=== PATIENT | female | born 1990 | race Caucasian/White ===

== ENCOUNTER 2018-11-16 10:12 | Emergency (ER) | payer OTHER, MEDICAID ==
[~2018-11-16] VITALS: Ht 177.8 cm; Wt 124.7 kg
[~2018-11-16 10:12] MED LIST: HYDROCODONE-AP1 EAC6 PO; IBUPROFEN 800800 M1 PO; MACROBID 100 M100 M1 PO; PHENERGAN 25 MG25 M1 PO; PRENATAL
[2018-11-16] MEDS ORDERED: BACTRIM DS TAB1 EACH PO (11:06)
[2018-11-16 11:10] VITALS: BP 155/102
[2018-11-17] MEDS ORDERED: ZOFRAN ODT4 MG PO (18:07)
[2018-11-17] MEDS ORDERED: CLEOCIN HCL300 MG PO (18:07)
== END 2018-11-16 11:20 | disposition home or self-care (01) ==
LOC: M.ERS 10:12
DX: L02.412 Cutaneous abscess of left axilla (principal); Z88.6 Allergy status to analgesic agent; Z91.040 Latex allergy status

== ENCOUNTER 2018-11-17 17:44 | Emergency (ER) | payer OTHER, MEDICAID ==
[~2018-11-17] VITALS: Ht 177.8 cm; Wt 124.7 kg
[~2018-11-17 17:44] MED LIST changes: +BACTRIM DS TAB1 EACH PO
[2018-11-17 18:01] VITALS: BP 167/98
[2018-11-17] MEDS ORDERED: CLEOCIN HCL300 MG PO (18:07)
[2018-11-17] MEDS ORDERED: ZOFRAN ODT4 MG PO (18:07)
== END 2018-11-17 18:19 | disposition home or self-care (01) ==
LOC: M.ERS 17:44
DX: L02.412 Cutaneous abscess of left axilla (principal); T37.0X5A Adverse effect of sulfonamides, initial encounter; R11.2 Nausea with vomiting, unspecified; Y92.89 Other specified places as the place of occurrence of the external cause; F17.210 Nicotine dependence, cigarettes, uncomplicated; Z88.6 Allergy status to analgesic agent; Z91.040 Latex allergy status

== ENCOUNTER 2019-03-18 14:26 | Emergency (ER) | payer OTHER, MEDICAID ==
[~2019-03-18] VITALS: Ht 180.3 cm; Wt 136.1 kg
[~2019-03-18 14:26] MED LIST changes: +CLEOCIN HCL300 MG PO; +ZOFRAN ODT4 MG PO
[2019-03-18] MEDS ORDERED: BUTALB-APAP-CA1 EACH PO (15:19)
[2019-03-18] MEDS ORDERED: ONDANSETRON HCL4 M2 PO (15:19)
[2019-03-18 15:53] VITALS: BP 158/86
== END 2019-03-18 15:56 | disposition home or self-care (01) ==
LOC: M.ERS 14:26
DX: S06.0X0A Concussion without loss of consciousness, initial encounter (principal); R11.2 Nausea with vomiting, unspecified; Z91.040 Latex allergy status; Z88.6 Allergy status to analgesic agent; W18.39XA Other fall on same level, initial encounter; Y93.89 Activity, other specified; Y92.89 Other specified places as the place of occurrence of the external cause; Y99.8 Other external cause status

== ENCOUNTER 2019-04-09 09:05 | Emergency (ER) | payer OTHER, MEDICAID ==
[~2019-04-09] VITALS: Ht 177.8 cm; Wt 136.1 kg
[~2019-04-09 09:05] MED LIST changes: +BUTALB-APAP-CA1 EACH PO; +ONDANSETRON HCL4 M2 PO
[2019-04-09 09:29] LABS: ABSOLUTE BASOPHILS 0.1 thou/uL (0.0-0.2); ABSOLUTE EOSINOPHILS 0.3 thou/uL (0.0-0.7); ABSOLUTE LYMPHOCYTES 3.6 thou/uL (0.8-5.3); ABSOLUTE MONOCYTES 0.8 thou/uL (0.0-1.2); ABSOLUTE NEUTROPHILS 8.1 thou/uL (1.6-8.1); BASOPHILS 1.1 %; HEMATOCRIT 41.6 % (37.0-47.0); HEMOGLOBIN 13.7 gm/dL (12.0-15.0); MCH 26.1 pg (26.0-34.0); MCHC 32.8 g/dL (28.0-37.0); MCV 79.5 fL (80.0-100.0); MONOCYTES 6.2 %; MPV 8.7 fl. (7.2-11.1); NUCLEATED RBCS 0 /100WBC; PLATELET COUNT* 384 thou/uL (150-400); POLYS 62.7 %; RBC 5.24 mil/uL (4.20-5.00); RDW-CV 14.6 % (10.5-14.5); WBC 12.8 thou/uL (4.0-11.0)
[2019-04-09 09:37] LABS: CALCIUM 9.4 mg/dL (8.5-10.1); CREATININE 0.7 mg/dL (0.6-1.3); POTASSIUM 4.1 mmol/L (3.5-5.1)
[2019-04-09 09:42] LABS: ALBUMIN 3.5 g/dL (3.4-5.0); TOTAL BILIRUBIN 0.3 mg/dL (<0.1-1.0); TOTAL PROTEIN 8.2 g/dL (6.4-8.2)
[2019-04-09 10:52] LABS: URINE BILIRUBIN NEGATIVE (Negative); URINE BLOOD 3+ (Negative); URINE CLARITY CLEAR; URINE COLOR YELLOW; URINE GLUCOSE-RANDOM NEGATIVE (Negative); URINE KETONES NEGATIVE (Negative); URINE LEUKOCYTES-REFLEX NEGATIVE (Negative); URINE NITRITE-REFLEX NEGATIVE (Negative); URINE PROTEIN 1+ (Negative); URINE UROBILINOGEN 0.2 E.U./dl (0.2-1.0)
[2019-04-09 10:59] LABS: SQUAMOUS >10 Many /LPF (0-3)
[2019-04-09 11:00] LABS: CASTS None Seen /LPF (None Seen); MUCUS >6 Heavy strn/LPF (None Seen); URINE RBC >20 Many /HPF (0-2); URINE WBC-REFLEX 0-5 Rare /HPF (0-5)
[2019-04-09 11:01] LABS: CRYSTALS None Seen /LPF (None Seen)
[2019-04-09] MEDS ORDERED: NORCO 5-325 TA1 EAC1 PO (13:04)
[2019-04-09] MEDS ORDERED: IBUPROFEN 800800 MG PO (13:04)
[2019-04-09 13:26] VITALS: BP 127/62
== END 2019-04-09 13:27 | disposition home or self-care (01) ==
LOC: M.ERS 09:05
PROVIDERS: Personal Emergency Response Attendant
DX: R10.32 Left lower quadrant pain (principal); R11.2 Nausea with vomiting, unspecified; Z88.6 Allergy status to analgesic agent; Z91.040 Latex allergy status

== ENCOUNTER 2019-04-11 23:02 | Emergency (ER) | payer OTHER, MEDICAID ==
[~2019-04-11] VITALS: Ht 177.8 cm; Wt 136.1 kg
[~2019-04-11 23:02] MED LIST changes: +IBUPROFEN 800800 MG PO; +NORCO 5-325 TA1 EAC1 PO
[2019-04-11 23:25] LABS: URINE BILIRUBIN NEGATIVE (Negative); URINE BLOOD 1+ (Negative); URINE CLARITY CLEAR; URINE COLOR YELLOW; URINE GLUCOSE-RANDOM NEGATIVE (Negative); URINE KETONES NEGATIVE (Negative); URINE LEUKOCYTES-REFLEX NEGATIVE (Negative); URINE NITRITE-REFLEX NEGATIVE (Negative); URINE PROTEIN NEGATIVE (Negative); URINE SPECIFIC GRAVITY >= 1.030 (1.005-1.030); URINE UROBILINOGEN 0.2 E.U./dl (0.2-1.0)
[2019-04-11 23:57] LABS: ABSOLUTE BASOPHILS 0.2 thou/uL (0.0-0.2); ABSOLUTE EOSINOPHILS 0.4 thou/uL (0.0-0.7); ABSOLUTE NEUTROPHILS 6.2 thou/uL (1.6-8.1); BASOPHILS 1.3 %; HEMATOCRIT 38.8 % (37.0-47.0); HEMOGLOBIN 12.5 gm/dL (12.0-15.0); LYMPHOCYTES 33.9 %; MCH 25.9 pg (26.0-34.0); MCHC 32.4 g/dL (28.0-37.0); MCV 80.1 fL (80.0-100.0); MONOCYTES 8.7 %; MPV 8.7 fl. (7.2-11.1); NUCLEATED RBCS 0 /100WBC; PLATELET COUNT* 333 thou/uL (150-400); POLYS 53.1 %; RBC 4.84 mil/uL (4.20-5.00); RDW-CV 14.8 % (10.5-14.5); WBC 11.8 thou/uL (4.0-11.0)
[2019-04-12 00:03] LABS: AMP/METHAMP Negative (Negative); BARBITURATES POSITIVE (Negative); BENZODIAZEPINES Negative (Negative); COCAINE Negative (Negative); METHADONE Negative (Negative); OPIATES POSITIVE (Negative); PCP Negative (Negative); THC Negative (Negative)
[2019-04-12 00:08] LABS: CALCIUM 9.1 mg/dL (8.5-10.1); CREATININE 0.7 mg/dL (0.6-1.3); POTASSIUM 3.9 mmol/L (3.5-5.1)
[2019-04-12 00:23] LABS: TOTAL BILIRUBIN 0.1 mg/dL (<0.1-1.0); TOTAL PROTEIN 7.1 g/dL (6.4-8.2)
[2019-04-12] MEDS ORDERED: NORCO 7.5-3251 EACH PO (01:22)
[2019-04-12] MEDS ORDERED: FLEXERIL PO (01:22)
[2019-04-12] MEDS ORDERED: ZOFRAN ODT4 MG PO (01:23)
[2019-04-12 01:45] VITALS: BP 101/68
[2019-04-12] MEDS ORDERED: BACTRIM DS TAB1 EACH PO (17:11)
[2019-04-12] MEDS ORDERED: PHENAZOPYRIDIN200 M2 PO (17:11)
== END 2019-04-12 01:46 | disposition home or self-care (01) ==
LOC: M.ERS 23:02
PROVIDERS: Emergency Medicine
DX: R10.9 Unspecified abdominal pain (principal); F10.10 Alcohol abuse, uncomplicated; Z88.6 Allergy status to analgesic agent; Z91.040 Latex allergy status

== ENCOUNTER 2019-04-12 16:02 | Emergency (ER) | payer OTHER, MEDICAID ==
[~2019-04-12] VITALS: Ht 177.8 cm; Wt 140.6 kg
[~2019-04-12 16:02] MED LIST changes: +FLEXERIL PO; +NORCO 7.5-3251 EACH PO
[2019-04-12 16:20] LABS: ABSOLUTE BASOPHILS 0.2 thou/uL (0.0-0.2); ABSOLUTE EOSINOPHILS 0.3 thou/uL (0.0-0.7); ABSOLUTE LYMPHOCYTES 3.7 thou/uL (0.8-5.3); ABSOLUTE NEUTROPHILS 8.1 thou/uL (1.6-8.1); BASOPHILS 1.2 %; EOSINOPHILS 2.1 %; MCH 25.8 pg (26.0-34.0); MCHC 32.4 g/dL (28.0-37.0); MCV 79.4 fL (80.0-100.0); MONOCYTES 7.3 %; MPV 8.7 fl. (7.2-11.1); NUCLEATED RBCS 0 /100WBC; PLATELET COUNT* 360 thou/uL (150-400); POLYS 61.4 %; RBC 5.03 mil/uL (4.20-5.00); RDW-CV 14.8 % (10.5-14.5); WBC 13.2 thou/uL (4.0-11.0)
[2019-04-12 16:26] LABS: CALCIUM 9.1 mg/dL (8.5-10.1); CREATININE 0.9 mg/dL (0.6-1.3); POTASSIUM 4.3 mmol/L (3.5-5.1)
[2019-04-12 16:31] LABS: ALBUMIN 3.2 g/dL (3.4-5.0); TOTAL BILIRUBIN 0.1 mg/dL (<0.1-1.0); TOTAL PROTEIN 7.4 g/dL (6.4-8.2)
[2019-04-12 17:00] LABS: URINE BILIRUBIN NEGATIVE (Negative); URINE BLOOD TRACE (Negative); URINE CLARITY CLEAR; URINE COLOR YELLOW; URINE GLUCOSE-RANDOM NEGATIVE (Negative); URINE KETONES NEGATIVE (Negative); URINE LEUKOCYTES-REFLEX TRACE (Negative); URINE NITRITE-REFLEX NEGATIVE (Negative); URINE PROTEIN NEGATIVE (Negative); URINE UROBILINOGEN 0.2 E.U./dl (0.2-1.0)
[2019-04-12] MEDS ORDERED: BACTRIM DS TAB1 EACH PO (17:11)
[2019-04-12] MEDS ORDERED: PHENAZOPYRIDIN200 M2 PO (17:11)
[2019-04-12 17:29] LABS: BACTERIA-REFLEX 1-9 Few /HPF (None Seen); CASTS None Seen /LPF (None Seen); CRYSTALS None Seen /LPF (None Seen); SQUAMOUS 0-3 Few /LPF (0-3); URINE RBC 0-2 Rare /HPF (0-2); URINE WBC-REFLEX 0-5 Rare /HPF (0-5)
[2019-04-12 17:32] VITALS: BP 119/65
[2019-04-12 17:35] LABS: AMORPHOUS URATES Few /LPF (None Seen)
== END 2019-04-12 17:34 | disposition home or self-care (01) ==
LOC: M.ERS 16:02
PROVIDERS: Nurse Practitioner Psychiatric/Mental Health
DX: N39.0 Urinary tract infection, site not specified (principal); Z91.040 Latex allergy status; Z88.6 Allergy status to analgesic agent

== ENCOUNTER 2019-05-18 23:53 | Emergency (ER) | payer OTHER, MEDICAID ==
[~2019-05-18] VITALS: Ht 157.5 cm; Wt 147.4 kg
[~2019-05-18 23:53] MED LIST changes: +PHENAZOPYRIDIN200 M2 PO
[2019-05-19] MEDS ORDERED: NORCO 7.5-3251 EACH PO ×2 (00:42→01:06)
[2019-05-19 01:14] VITALS: BP 155/90
== END 2019-05-19 01:16 | disposition home or self-care (01) ==
LOC: M.ERS 23:53
DX: S93.491A Sprain of other ligament of right ankle, initial encounter (principal); S80.01XA Contusion of right knee, initial encounter; Z88.6 Allergy status to analgesic agent; Z91.040 Latex allergy status; Z87.442 Personal history of urinary calculi; W10.9XXA Fall (on) (from) unspecified stairs and steps, initial encounter; Y92.89 Other specified places as the place of occurrence of the external cause; Y93.89 Activity, other specified; Y99.8 Other external cause status

== ENCOUNTER 2019-05-22 08:37 | Emergency (ER) | payer OTHER, MEDICAID ==
[~2019-05-22] VITALS: Ht 177.8 cm; Wt 147.4 kg
[2019-05-22 08:46] VITALS: BP 160/90
[2019-05-22] MEDS ORDERED: PERCOCET 5-3251 EACH PO (08:58)
== END 2019-05-22 09:05 | disposition home or self-care (01) ==
LOC: M.ERS 08:37
DX: S93.491A Sprain of other ligament of right ankle, initial encounter (principal); F17.210 Nicotine dependence, cigarettes, uncomplicated; Z87.442 Personal history of urinary calculi; Z88.6 Allergy status to analgesic agent; Z91.040 Latex allergy status; W18.39XA Other fall on same level, initial encounter; Y93.89 Activity, other specified; Y92.89 Other specified places as the place of occurrence of the external cause; Y99.8 Other external cause status

== ENCOUNTER 2021-03-19 08:14 | Emergency (ER) | payer OTHER, MEDICAID ==
[~2021-03-19] VITALS: Ht 177.8 cm; Wt 158.8 kg
[~2021-03-19 08:14] MED LIST changes: +PERCOCET 5-3251 EACH PO
[2021-03-19] MEDS ORDERED: DOXYCYCLINE 10100 M2 PO (08:30)
[2021-03-19] MEDS ORDERED: PROTONIX40 M2 PO (08:30)
[2021-03-19] MEDS ORDERED: TRAMADOL 50 MG50 MG PO (09:10)
[2021-03-19 09:19] VITALS: BP 151/98
== END 2021-03-19 09:20 | disposition home or self-care (01) ==
LOC: M.ERS 08:14
DX: S50.11XA Contusion of right forearm, initial encounter (principal); Z87.442 Personal history of urinary calculi; Z91.040 Latex allergy status; Z88.6 Allergy status to analgesic agent; W18.39XA Other fall on same level, initial encounter; Y93.89 Activity, other specified; Y92.89 Other specified places as the place of occurrence of the external cause; Y99.8 Other external cause status